=== PATIENT | female | born 1940 | race Caucasian/White ===

== ENCOUNTER → 2017-01-21 | Outpatient (CLI) | payer MEDICARE, BC | LOC: MC.RAD 13:20 | DX: Z12.31 Encounter for screening mammogram for malignant neoplasm of breast (principal) ==

== ENCOUNTER → 2018-02-14 | Outpatient (CLI) | payer MEDICARE, BC | LOC: MC.RAD 14:00 | DX: Z12.31 Encounter for screening mammogram for malignant neoplasm of breast (principal) ==

== ENCOUNTER → 2019-03-01 | Outpatient (CLI) | payer MEDICARE, BC | LOC: MC.RAD 14:01 | DX: Z12.31 Encounter for screening mammogram for malignant neoplasm of breast (principal) ==

== ENCOUNTER → 2020-03-05 | Outpatient (CLI) | payer MEDICARE, BC | LOC: MC.RAD 13:45 | DX: Z12.31 Encounter for screening mammogram for malignant neoplasm of breast (principal) ==

== ENCOUNTER → 2021-03-27 | Outpatient (CLI) | payer MEDICARE, BC | LOC: MC.RAD 13:45 | DX: Z12.31 Encounter for screening mammogram for malignant neoplasm of breast (principal) ==

== ENCOUNTER → 2023-04-28 | Outpatient (CLI) | payer MEDICARE, BC ==
[~2023-04-28] MED LIST: ASPIRIN E.C. 8181 MG PO; B-121000 MCG PO; CITRACAL + D CA1 TAB; COLACE 100100 MG/CAP PO; CRESTOR 10MG10 MG PO; FOLIC ACID 40400 MCG PO; HCTZ 25MG TAB25 MG PO; ISTALOL 2.5 ML2.5 ML OD; MAGNESIUM PO; MASON NATURAL2000 IU PO; NATTOKINASE PO; NATURAL FISH1200 MG PO; PHARMASSURE ZIN50 MG PO; PREDNISONE20 MG PO; PREVACID 30MG30 M1 PO; PRINIVIL40 MG PO; VITAMIN C500 MG PO
== END ==
LOC: CANSCHCLI → MC.RAD 13:15
DX: Z12.31 Encounter for screening mammogram for malignant neoplasm of breast (principal)

== ENCOUNTER 2024-02-28 14:00 | Outpatient (CLI) | payer MEDICARE, BC ==
[~2024-02-28 14:00] MED LIST changes: -CITRACAL + D CA1 TAB; +CITRACAL + D CA1 TAB PO; -ISTALOL 2.5 ML2.5 ML OD; +ISTALOL 2.5 ML2.5 ML OU
[2024-02-28] MEDS ORDERED: Denosumab 60 MG/ML SYRINGE SQ ONE (14:15)
[2024-02-28 14:16] VITALS: BP 120/68; PULSE 77; TEMP 98
[2024-02-28] MEDS ORDERED: NATURAL MAGNES200 MG PO (14:18)
--- NOTE | 2024-02-28 14:56 | NUR ---
Pt tolerated prolia without issue. She remained in dept for monitoring following initial dose. She remains free of complaits. She is escorted out to waiting room. She is free of complaints at discharge.
== END 2024-02-28 14:57 | disposition home or self-care (01) ==
LOC: EUO 14:00
DX: M81.0 Age-related osteoporosis without current pathological fracture (principal)
CPT/HCPCS: J0897

== ENCOUNTER 2024-03-30 12:08 | Outpatient (RCR) | payer MEDICARE, BC ==
[~2024-03-30] VITALS: Ht 162.6 cm; Wt 77.0 kg
[2024-03-30] VITALS (10 sets, daily range): BP systolic 118–130; BP diastolic 37–48; PULSE 78–89; TEMP 98.7–99.8
[~2024-03-30 12:08] MED LIST changes: -B-121000 MCG PO; -MASON NATURAL2000 IU PO; +NATURAL MAGNES200 MG PO; +VITAMIN B125000 MCG PO; +VITAMIN D362.5 MC1 PO
[2024-03-30] MEDS ORDERED: NS 250 ML IV SCH (12:30)
[2024-03-30] MEDS ORDERED: diphenhydrAMINE 25 MG CAP PO SCH (12:30)
--- NOTE | 2024-03-30 14:47 | NUR ---
[facility] called to updated that T&C is showing reactivity. He will call Melissa's office to review results and get okay to continue with transfusion. Pt has been updated, expresses understanding and denies current needs. Lunch tray was ordered, pt ate all. She is now resting comfortably in bed. Call light in hand.
[2024-03-30] MEDS ORDERED: Ibuprofen 400 MG TAB PO PRN (15:30)
[2024-03-30] MEDS ORDERED: Ibuprofen 200 MG TAB PO PRN (15:45)
[2024-03-30] MEDS ORDERED: [UNRECOGNIZED DRUG - OTHER] PO (16:00)
[2024-03-30] MEDS ORDERED: [UNRECOGNIZED DRUG - OTHER] PO (16:02)
[2024-03-30] MEDS ORDERED: IFEREX 150150 MG PO (16:03)
[2024-03-30] MEDS ORDERED: COMPLETE MULTI1 TAB PO (16:05)
[2024-03-30] MEDS ORDERED: MOTRIN 200200 MG/TAB PO (16:10)
[2024-03-30] MEDS ORDERED: HYLAND LEG CRAMPS PO (16:11)
[2024-03-30] MEDS ORDERED: CLARITIN 1010 MG/TAB PO (16:11)
--- NOTE | 2024-03-30 18:57 | NUR ---
PT TOLERATED TRANSFUSION WELL. VS REMAINED WITHIN NORMAL LIMITS. PT REMAINED FREE FROM SIGNS AND SYMPTOMS OF HEMOLYTIC REACTION. ASSISTED TO ER EXIT VIA WHEELCHAIR. IV DISCONTINUED. PT FREE FROM ACUTE CONCERNS AND COMPLAINTS.
== END 2024-03-30 18:58 | disposition home or self-care (01) ==
LOC: EUO 12:08
DX: C91.10 Chronic lymphocytic leukemia of B-cell type not having achieved remission (principal)
CPT/HCPCS: J7050; P9040